=== PATIENT | female | born 1955 | race Caucasian/White ===

== ENCOUNTER 2017-06-02 11:36 | Day surgery (SDC) | payer OTHER ==
[~2017-06-02] VITALS: Ht 160 cm; Wt 62.0 kg
[2017-06-02 12:25] VITALS: BP 137/84; PULSE 103
[2017-06-02] MEDS ORDERED: LEXAPRO 10MG10 MG PO (12:31)
[2017-06-02] MEDS ORDERED: SINGULAIR 110 MG/TAB PO (12:32)
[2017-06-02] MEDS ORDERED: BREO IH (12:32)
[2017-06-02] MEDS ORDERED: BENEFIBER (12:32)
[2017-06-02] MEDS ORDERED: MULTI VITAMINS1 TAB PO (12:33)
[2017-06-02] MEDS ORDERED: NAC600 MG PO (12:40)
[2017-06-02] MEDS ORDERED: MIRALAX PA17 GM/Dose PO (12:40)
[2017-06-02] MEDS ORDERED: ZANTAC 150MG T150 MG PO (12:41)
[2017-06-02] MEDS ORDERED: SPIRIVA RE2.5 MCG/Ac IH (12:41)
[2017-06-02] MEDS ORDERED: ATARAX 25MG25 MG/TAB PO (12:42)
[2017-06-02] MEDS ORDERED: PRILOSEC 20MG20 MG PO (12:43)
[2017-06-02] MEDS ORDERED: LEVBID0.375 MG PO (12:43)
[2017-06-02 14:15] VITALS: BP 128/71; PULSE 88; TEMP 97.2
[2017-06-02 14:30] VITALS: BP 143/80; PULSE 80
[2017-06-02 14:45] VITALS: BP 146/91; PULSE 82
== END 2017-06-02 15:10 | disposition home or self-care (01) ==
LOC: SDCO 11:36
DX: K29.30 Chronic superficial gastritis without bleeding (principal); K22.2 Esophageal obstruction; K44.9 Diaphragmatic hernia without obstruction or gangrene; K21.9 Gastro-esophageal reflux disease without esophagitis; K58.2 Mixed irritable bowel syndrome; K59.09 Other constipation; J44.9 Chronic obstructive pulmonary disease, unspecified; Z87.891 Personal history of nicotine dependence
CPT/HCPCS: OP; C1769; J2704; J7120

== ENCOUNTER → 2017-07-21 | Outpatient (CLI) | payer OTHER ==
[~2017-07-21] MED LIST: ATARAX 25MG25 MG/TAB PO; BENEFIBER; BREO IH; LEVBID0.375 MG PO; LEXAPRO 10MG10 MG PO; MIRALAX PA17 GM/Dose PO; MULTI VITAMINS1 TAB PO; NAC600 MG PO; PRILOSEC 20MG20 MG PO; SINGULAIR 110 MG/TAB PO; SPIRIVA RE2.5 MCG/Ac IH; ZANTAC 150MG T150 MG PO
== END ==
LOC: COL.RAD 07-20 08:00
DX: K22.4 Dyskinesia of esophagus (principal)

== ENCOUNTER → 2017-07-23 | Outpatient (CLI) | payer OTHER | LOC: COL.RAD 07:44 | DX: R11.10 Vomiting, unspecified (principal) | CPT/HCPCS: A9541 ==

== ENCOUNTER 2017-08-24 10:31 | Day surgery (SDC) | payer OTHER ==
[~2017-08-24] VITALS: Ht 160 cm; Wt 57.7 kg
[2017-08-24] VITALS (13 sets, daily range): BP systolic 104–148; BP diastolic 44–109; PULSE 64–112; TEMP 97.6–98.2
[~2017-08-24 10:31] MED LIST changes: -BENEFIBER; +BENEFIBER PO
[2017-08-24] MEDS ORDERED: ZOFRAN ODT4 MG PO (11:39)
[2017-08-24] MEDS ORDERED: PULMICORT0.5 MG/2 M IH (11:41)
[2017-08-24] MEDS ORDERED: SPIRIVA RE2.5 MCG/Ac IH (21:05)
[2017-08-24] MEDS ORDERED: PROAIR HFA0.09 MG/AC IH (21:08)
[2017-08-25 01:35] VITALS: BP 124/69; PULSE 86; TEMP 98.5
[2017-08-25 05:41] VITALS: BP 139/74; PULSE 89; TEMP 98
[2017-08-25 10:22] VITALS: BP 122/74; PULSE 96; TEMP 98
== END 2017-08-25 16:30 | disposition home health service (06) ==
LOC: SDCO 10:31 → SURG 15:00 → SDCO 08-25 16:30
DX: K43.6 Other and unspecified ventral hernia with obstruction, without gangrene (principal); J44.9 Chronic obstructive pulmonary disease, unspecified; K21.9 Gastro-esophageal reflux disease without esophagitis; Z99.81 Dependence on supplemental oxygen; Z90.710 Acquired absence of both cervix and uterus; Z85.3 Personal history of malignant neoplasm of breast; Z87.891 Personal history of nicotine dependence; Z80.1 Family history of malignant neoplasm of trachea, bronchus and lung; Z82.3 Family history of stroke
CPT/HCPCS: OP; A9284; C1781; J0690; J1100; J1885; J2250; J2405; J2704; J3010; J7120

== ENCOUNTER 2019-01-12 17:25 | Inpatient (IN) | payer MEDICARE, OTHER ==
[~2019-01-12] VITALS: Ht 160 cm; Wt 49.1 kg
[~2019-01-12 17:25] MED LIST changes: +PROAIR HFA0.09 MG/AC IH; +PULMICORT0.5 MG/2 M IH; +ZOFRAN ODT4 MG PO
[2019-01-12 18:09] VITALS: BP 142/89; PULSE 122; TEMP 98.7
--- NOTE | 2019-01-12 18:20 | NUR ---
Patient arrived to room at 1745 via EMS. Is noted to be on 4L O2 via NC. Is dyspnic. Is on a heparin gtt. Spoke with pharmacy about conversion from [facility] to our pump. Was advised by pharmacist and CHANNELING MACHINE RUNNER to draw new lab. This was complete and reported to pharmacist which assited in adjusting the dose. Daughter is with patient at this time. She denies having any chest pain. Was notified that she received 1 ativan prior to leaving [place]. Personal items and call light is within reach.
[2019-01-12 19:57] VITALS: BP 127/77; PULSE 117; TEMP 100.1
[2019-01-12] MEDS ORDERED: B-121000 MCG PO (22:26)
[2019-01-12] MEDS ORDERED: DALIRESP500 MCG PO (22:29)
--- NOTE | 2019-01-12 22:50 | NUR ---
PT IN BED WITH HOB AT 60 DEGREE ANGLE. PT VERY SOB WITH ACTIVITY, ASSISTED TO BATHROOM AND BACK TO BED. PT WAS SOB AND 02 AT 88%, PT'S O2 DID COME UP WITHIN A COUPLE OF MINUTES. PT AWARE TO CALL FOR ASSISTANCE TO BATHROOM. DENIES PAIN OR DISCOMFORT AND NO NEEDS AT THIS TIME. CALL LIGHT WITHIN REACH.
--- NOTE | 2019-01-12 22:53 | NUR ---
RN IN ROOM ATTEMPTING TO START IV, PT APPEARS SOB. DIAPHARETIC, TACHYPNIC, SATS 89 ON 4 LPM NC DUONEB SVN GIVEN INSTEAD OF ALBUTEROL MDI PT APPEARS IMPROVED POST DUONEB TX. FOLLOWED BY BUDESONIDE SVN WILL CONTINUE TO MONITOR
[2019-01-12 23:53] VITALS: BP 131/72; PULSE 104; TEMP 99.7
[2019-01-13] VITALS (13 sets, daily range): BP systolic 101–144; BP diastolic 60–82; PULSE 86–132; TEMP 97.6–99.2
--- NOTE | 2019-01-13 01:14 | NUR ---
PT IN BED WITH HOB AT 90 DEGREE ANGLE AND BOTH EYES CLOSED. PT EASILY AWAKENS AND NO C/O PAIN OR DISCOMFORT AT THIS TIME. PT HAS NO NEEDS AT THIS TIME CALL LIGHT WITHIN REACH.
[2019-01-13 01:41] LABS: MAGNESIUM 1.7 mg/dL (1.6-2.3)
[2019-01-13 01:54] LABS: TROPONIN-I < 0.012 ng/mL (0.000-0.035)
--- NOTE | 2019-01-13 05:03 | NUR ---
PT SLEEPING/RESTING WITH NO S/S OF PAIN OR DISCOMFORT NOTED. HOB ELEVATED TO 30 DEGREE ANGLE AND PT'S RESP EVEN AND UNLABORED. CALL LIGHT WITHIN REACH.
--- NOTE | 2019-01-13 06:12 | NUR ---
UNEVENTFUL NIGHT FOR PT. PT SLEPT/RESTED FOR A FEW HOURS, WITH NO S/S OF PAIN OR DISCOMFORT NOTED. RESP EVEN AND UNLABORED. PT AWAKE AT THIS TIME A/O X4. CALL LIGHT WITHIN REACH.
[2019-01-13 07:35] LABS: HEMATOCRIT 50.6 % (37.0-47.0); HEMOGLOBIN 16.2 g/dl (12.5-16.0); MEAN CELL VOLUME 94 fl (80.0-100.0); MEAN CORPUSCULAR HEMOGLOBIN 30 pg (27.0-31.0); MEAN CORPUSCULAR HGB CONC 32 g/dl (33.0-37.0); MEAN PLATELET VOLUME 10.1 fl (7.4-10.4); PLATELET COUNT 204 K/mm3 (130-400); RED BLOOD COUNT 5.39 M/mm3 (4.10-5.30); REDCELL DISTRIBUTION WIDTH-CV 15.2 % (11.5-14.5)
[2019-01-13 07:50] LABS: ALBUMIN 3.8 gm/dL (3.5-5.0); BILIRUBIN,TOTAL 0.6 mg/dL (0.0-1.0); CALCIUM 9.6 mg/dL (8.4-10.2); CHOLESTEROL RISK RATIO 2.5; CREATININE, serum 0.4 (0.52-1.25); TOTAL PROTEIN 7.4 gm/dL (6.4-8.2)
--- NOTE | 2019-01-13 07:50 | NUR ---
Received report, patient is resting in bed with eyes closed. Respirations are even and non labored. Call light and personal items are within reach.
[2019-01-13 09:43] LABS: BAND 16 % (0-10); LYMPHOCYTE 19 % (20.0-51.0); NEUTROPHILS 65 % (42.0-75.2); PLATELET ESTIMATE NORMAL (NORMAL)
--- NOTE | 2019-01-13 11:04 | NUR ---
Initial visit; Patient thanked Supervisor Diagnostic for looking in on her and offering God's blessings. room service attendant let her know she would be offered Holy Communion since she is listed as Bahai.
--- NOTE | 2019-01-13 13:50 | NUR ---
SW attended clinical rounds to discuss discharge planning. Patient lives at home with her . Patient's PCP is Dr Walker at [facility] and patient obtains presciptions from [facility]. Patient uses home O2 but no other DME is reported. Patient does not use home health services. Patient reports she does have a DPOA. Patient was seen by PT and they report patient should not need any services when she is discharged. SW does not anticipate discharge needs.
--- NOTE | 2019-01-13 18:38 | NUR ---
Patient sitting up in bed, is at bedside. Denies pain. Call light and personal items are within reach.
--- NOTE | 2019-01-13 20:30 | NUR ---
Initial shift assessment done- denies pain, states SOB with any exertion-up to bathroom, purse lip breathing when back to bed--took a few minutes to resolve-- states does feel jittery tonight, understands resp treatments and steroids have that effect-- family in [place], visiting with patient- Tele on
[2019-01-14 03:46] VITALS: BP 117/61; PULSE 96; TEMP 98.6
--- NOTE | 2019-01-14 05:29 | NUR ---
Has been resting better after order for Melatonin during the night- remains very SOB with any exertion,o2 at 4L/nc
[2019-01-14 07:25] LABS: GRAN # 3.5 (1.4-6.5); HEMATOCRIT 41.8 % (37.0-47.0); LYMPH # 0.3 (1.2-3.4); LYMPH % 6.9 % (20.0-51.0); MEAN CELL VOLUME 93 fl (80.0-100.0); MEAN CORPUSCULAR HEMOGLOBIN 30 pg (27.0-31.0); MEAN CORPUSCULAR HGB CONC 32 g/dl (33.0-37.0); MEAN PLATELET VOLUME 9.7 fl (7.4-10.4); MONO # 0.3 (0.1-0.6); MONO % 6.4 % (1.7-9.3); PLATELET COUNT 182 K/mm3 (130-400); RED BLOOD COUNT 4.49 M/mm3 (4.10-5.30); REDCELL DISTRIBUTION WIDTH-CV 15.2 % (11.5-14.5)
[2019-01-14 07:38] LABS: CALCIUM 9.3 mg/dL (8.4-10.2); CREATININE, serum 0.39 (0.52-1.25); POTASSIUM 3.7 mmol/L (3.4-5.0)
[2019-01-14 07:49] LABS: HEMOGLOBIN 13.5 g/dl (12.5-16.0)
[2019-01-14 07:52] VITALS: BP 127/65; PULSE 78; TEMP 98.6
--- NOTE | 2019-01-14 08:38 | NUR ---
Pt assessment complete. Pt is laying in bed upon entry, she arouses to voice. Pt is oriented x3. Her breathing is currently even and unlabored on 4L O2 via NC, pt reports SOB on exertion. She has a dry non productive cough. Pt denies any pain. No N/V present, has not eaten yet this AM. No N/T. Tele reports frequent PVC's, pt denies any chest pain or palpitations. No needs at this time. Call light within reach.
[2019-01-14 11:47] VITALS: BP 126/63; PULSE 108; TEMP 98.5
[2019-01-14 16:33] VITALS: BP 118/66; PULSE 97; TEMP 98.2
--- NOTE | 2019-01-14 18:47 | NUR ---
Pt had uneventful day. Her breathing was unchanged on 4L O2 via NC. No pain reported. Pt laying in bed watching television, at bedside. Report given to JOVITA White. Call light within reach.
[2019-01-14 19:49] LABS: CALCIUM 9.5 mg/dL (8.4-10.2); CREATININE, serum 0.47 (0.52-1.25); MAGNESIUM 1.7 mg/dL (1.6-2.3); POTASSIUM 3.8 mmol/L (3.4-5.0)
[2019-01-14 20:00] VITALS: BP 130/63; PULSE 105; TEMP 99
--- NOTE | 2019-01-14 23:10 | NUR ---
Patient is alert and oriented, and able to make needs known. Peripheral IV to right forearm flushed. Site patent, and without redness, warmth, swelling, and pain. Patient complains of SOB and dyspnea with exertion. Respirations are labored with exertion, unlabored at rest. Respirations shallow when up moving around. LS CTA upper lobes, diminished lower lobes. Tachycardia. BSAx4. No edema.
--- NOTE | 2019-01-14 23:15 | NUR ---
At approximately 1920, this nurse got a phone call from testing tech reporting that patient was having multiple runs of PVCs, which was not happening on previous shift. This nurse assessed patient. Patient was sitting up in bed. Denied having SOB and chest pain. VS obtained: 99.0 105 18 130/63 93% on oxygen at 4 L/min via NC. Called and spoke with nurse practioner on duty at approximately 1925. Updated on patient. Order received for stat BMP and mag. Called lab and notified them. At approximately 1999, nurse practioner requested follow up BP and pulse. Obtained and called back to her: 122/62 110. Nurse practioner put in new orders. Called and notified 3rd floor charge of situation, as a cardizem bolus of 5 mg was ordered IV. During administration of medication, ACLS certified nurse administered medication, this nurse and charge nurse in room as well . 2015: BP 104/71 pulse 114. Patient was complaining that her heart was racing at this time, and was shaking. Patient laying in bed with HOB elevated during administration. Medication started to be given at 2016, finished at 2019. Afterwards, BP 127/63, pulse 110 (at 2020). Stated she no longer felt like her heart was racing. BP and pulse taken and patient checked on about every 5 minutes. Patient has denied having chest pain, palpitations, feelings of heart racing, etc. Given other medications as ordered: cardizem PO, IV magnesium, potassium PO. No furhter PVCs reported or noted. NS, with HR 90-110.
[2019-01-15] VITALS (9 sets, daily range): BP systolic 114–154; BP diastolic 58–71; PULSE 74–103; TEMP 97.9–98.8
--- NOTE | 2019-01-15 06:23 | NUR ---
Patient has not had any further complaints of chest pain or palpitations. Continues to wear oxygen at 4 L/min via NC. Continues to have SOB and dyspnea with exertion. Heart rate currently in the 70s. Voices no needs or concerns at this time. Resting in bed with eyes closed at this time. Call light is within reach.
--- NOTE | 2019-01-15 07:11 | NUR ---
Report given to day shift nurse.
[2019-01-15 07:39] LABS: CALCIUM 8.9 mg/dL (8.4-10.2); CREATININE, serum 0.37 (0.52-1.25); MAGNESIUM 2.1 mg/dL (1.6-2.3); POTASSIUM 4.6 mmol/L (3.4-5.0)
[2019-01-15 08:57] LABS: GRAN # 4.3 (1.4-6.5); GRAN % 85.6 % (42.2-75.2); HEMATOCRIT 41.5 % (37.0-47.0); HEMOGLOBIN 13.5 g/dl (12.5-16.0); LYMPH # 0.3 (1.2-3.4); LYMPH % 6.1 % (20.0-51.0); MEAN CELL VOLUME 92 fl (80.0-100.0); MEAN CORPUSCULAR HEMOGLOBIN 30 pg (27.0-31.0); MEAN CORPUSCULAR HGB CONC 33 g/dl (33.0-37.0); MEAN PLATELET VOLUME 10.3 fl (7.4-10.4); MONO # 0.4 (0.1-0.6); MONO % 7.9 % (1.7-9.3); PLATELET COUNT 154 K/mm3 (130-400); RED BLOOD COUNT 4.49 M/mm3 (4.10-5.30); REDCELL DISTRIBUTION WIDTH-CV 15.8 % (11.5-14.5)
--- NOTE | 2019-01-15 15:21 | NUR ---
Pt alert and oriented. Pt states she if feeling a little better but just worn out. Pt sleeping off and on but arouses easily. Pt remains on 4L oxygen via nasal cannula. Pt calls for assist to get up d/t low endurance and SOB with minimal exertion. Pt IV patent and no redness or infiltration noted. Pt has call light in reach.
--- NOTE | 2019-01-15 19:20 | NUR ---
Pt report given to Daniella HUSSEIN.
--- NOTE | 2019-01-15 20:40 | NUR ---
Patient report received from JOVITA Pollock at shift change. Upon assessment patient is sitting up in bed watching tv. Patient reports that she just received her breathing treatments which make her jittery. Requested PRN Ativan at this time. Patient denies pain or n/v. INT to right forearm. No other needs reported/observed.
--- NOTE | 2019-01-16 01:45 | NUR ---
IV started to Left Hand after Right FA IV was leaking. Discontinued Right FA IV at this time.
[2019-01-16 04:12] VITALS: BP 119/73; PULSE 75; TEMP 98
--- NOTE | 2019-01-16 05:42 | NUR ---
Patient report given to JOVITA Valdovinos. Patient is currently resting comfortably after being awake half the night. No needs reported at this time.
[2019-01-16 06:59] LABS: GRAN # 2.7 (1.4-6.5); GRAN % 70.5 % (42.2-75.2); HEMATOCRIT 39.5 % (37.0-47.0); HEMOGLOBIN 12.7 g/dl (12.5-16.0); LYMPH # 0.6 (1.2-3.4); LYMPH % 15.8 % (20.0-51.0); MEAN CELL VOLUME 94 fl (80.0-100.0); MEAN CORPUSCULAR HEMOGLOBIN 30 pg (27.0-31.0); MEAN CORPUSCULAR HGB CONC 32 g/dl (33.0-37.0); MEAN PLATELET VOLUME 10.1 fl (7.4-10.4); MONO # 0.5 (0.1-0.6); MONO % 13.2 % (1.7-9.3); PLATELET COUNT 177 K/mm3 (130-400); RED BLOOD COUNT 4.22 M/mm3 (4.10-5.30); REDCELL DISTRIBUTION WIDTH-CV 15.8 % (11.5-14.5)
[2019-01-16 07:13] LABS: CALCIUM 8.9 mg/dL (8.4-10.2); CREATININE, serum 0.44 (0.52-1.25); POTASSIUM 4.1 mmol/L (3.4-5.0)
[2019-01-16 08:48] VITALS: BP 127/67; PULSE 74; TEMP 98.6
[2019-01-16] MEDS ORDERED: TYLENOL 325MG325 MG PO (09:23)
[2019-01-16] MEDS ORDERED: MUCUS RELIEF400 M1 PO (09:23)
[2019-01-16] MEDS ORDERED: TESSALON P100 MG/CAP PO (09:27)
[2019-01-16] MEDS ORDERED: ATIVAN 0.50.5 MG/TAB PO (09:33)
[2019-01-16] MEDS ORDERED: LEXAPRO 10MG10 MG PO (09:33)
[2019-01-16] MEDS ORDERED: MILLIPRED DP5 MG PO (09:33)
--- NOTE | 2019-01-16 10:15 | NUR ---
Pt alert and oriented this am and denies pain. Pt SOB with minimal activity. Pt IV in left hand patent no redness or infiltration noted. Pt has orders to discharge home today. Pt has call light in reach and denies needs.
--- NOTE | 2019-01-16 10:55 | NUR ---
Pt given discharge instructions and hand written scripts for new medications. Meds reviewed with pt and pt denies questions and verbalizes understanding. Pt IV discontinued from left hand no bleeding and drsg applied. Pt's spouse at [employer] now and then will curing pickling packer pt to go home. Pt remains on 4L oxygen via nasal cannula. Pt telemetry taken off and ICU notified pt going home.
--- NOTE | 2019-01-16 11:42 | NUR ---
Patient is being DC, will need home health. TAD met with patient about home health and presented patient with medicare.gov referral sheet for home health in [place] area [id number]. [facility]. TAD sent referrals to both. NOthing further.
--- NOTE | 2019-01-16 11:45 | NUR ---
Pt escorted out to car via wheelchair without incident. Pt has all belongings.
== END 2019-01-16 10:30 | disposition home health service (06) | DRG 191 ==
LOC: MEDICAL 17:25
PROVIDERS: Nurse Practitioner; Nurse Practitioner Family; ADMIT Internal Medicine
DX: J44.1 Chronic obstructive pulmonary disease with (acute) exacerbation (principal); E44.0 Moderate protein-calorie malnutrition; Z68.1 Body mass index [BMI] 19.9 or less, adult; F32.9 Major depressive disorder, single episode, unspecified; R00.0 Tachycardia, unspecified; G47.00 Insomnia, unspecified; F41.9 Anxiety disorder, unspecified; R53.81 Other malaise; Z90.710 Acquired absence of both cervix and uterus; Z88.6 Allergy status to analgesic agent; Z88.0 Allergy status to penicillin
CPT/HCPCS: 99222; 99222-AI; 99232-AI; 99239; A9500; G0378; J1644; J1650; J2785; J2920; J2930; J3475; J7050; J7512

== ENCOUNTER → 2019-01-17 | Outpatient (CLI) | payer MEDICARE, OTHER ==
[~2019-01-17] MED LIST changes: +ATIVAN 0.50.5 MG/TAB PO; +B-121000 MCG PO; +DALIRESP500 MCG PO; +MILLIPRED DP5 MG PO; +MUCUS RELIEF400 M1 PO; +TESSALON P100 MG/CAP PO; +TYLENOL 325MG325 MG PO
== END ==
LOC: COL.RAD 07:33
DX: R63.4 Abnormal weight loss (principal)
CPT/HCPCS: A9541

== ENCOUNTER 2019-08-26 13:29 | Inpatient (IN) | payer MEDICARE, OTHER ==
[~2019-08-26] VITALS: Ht 160 cm; Wt 60.9 kg
[2019-10-04] VITALS (12 sets, daily range): BP systolic 101–143; BP diastolic 60–79; PULSE 73–81; TEMP 97–98.7
[2019-10-04] MEDS ORDERED: XOPENEX HF0.045 MG/A IH (14:24)
[2019-10-04] MEDS ORDERED: RT ADVAIR 528 DISKUS IH (14:24)
[2019-10-04] MEDS ORDERED: PRILOSEC 20MG20 MG PO (14:24)
[2019-10-04] MEDS ORDERED: ALLEGRA 180MG180 MG PO (14:25)
[2019-10-04] MEDS ORDERED: SINGULAIR 110 MG/TAB PO (14:26)
[2019-10-04] MEDS ORDERED: CARDIZEM CD 12120 MG PO (14:28)
[2019-10-04] MEDS ORDERED: COMBIRESP IH (14:51)
[2019-10-05] VITALS (10 sets, daily range): BP systolic 94–131; BP diastolic 41–70; PULSE 64–103; TEMP 97.7–99.2
[2019-10-05 07:39] LABS: HEMOGLOBIN 11.2 g/dl (12.5-16.0)
[2019-10-06 01:14] VITALS: BP 114/57; PULSE 90; TEMP 98.8
[2019-10-06 04:33] VITALS: BP 118/60; PULSE 78; TEMP 98.3
[2019-10-06 06:10] VITALS: BP 135/87; PULSE 72; TEMP 98
[2019-10-06] MEDS ORDERED: XARELTO10 MG PO (07:51)
[2019-10-06] MEDS ORDERED: CELEBREX 200MG200 MG PO (07:51)
[2019-10-06] MEDS ORDERED: ROXICODONE 55 MG/TAB PO (07:52)
[2019-10-06] MEDS ORDERED: ULTRAM 50MG TAB50 MG PO (07:52)
[2019-10-06] MEDS ORDERED: TYLENOL 500MG500 MG PO (07:53)
[2019-10-06] MEDS ORDERED: COLACE 100100 MG/CAP PO (07:54)
[2019-10-06 08:08] LABS: HEMOGLOBIN 10.6 g/dl (12.5-16.0)
[2019-10-06 08:13] LABS: HEMATOCRIT 32.8 % (37.0-47.0)
[2019-10-06 08:40] VITALS: BP 120/61; PULSE 87; TEMP 98.2
[2019-10-06 10:11] VITALS: BP 110/61; PULSE 90; TEMP 98
[2019-10-06 12:35] VITALS: BP 101/57; PULSE 88; TEMP 97.6
== END 2019-10-06 14:00 | disposition home or self-care (01) | DRG 470 ==
LOC: JCC 10-04 07:30
PROVIDERS: ADMIT Orthopaedic Surgery
PROC: 0SR903A Replacement of Right Hip Joint with Ceramic Synthetic Substitute, Uncemented, Open Approach (ICD-10-PCS; principal; 2019-10-04 09:30)
DX: M87.851 Other osteonecrosis, right femur (principal); M16.11 Unilateral primary osteoarthritis, right hip; J44.9 Chronic obstructive pulmonary disease, unspecified; J30.2 Other seasonal allergic rhinitis; F32.9 Major depressive disorder, single episode, unspecified; F41.9 Anxiety disorder, unspecified; I10 Essential (primary) hypertension; K59.00 Constipation, unspecified; R33.9 Retention of urine, unspecified; L50.9 Urticaria, unspecified; Z72.89 Other problems related to lifestyle; Z85.3 Personal history of malignant neoplasm of breast; Z92.21 Personal history of antineoplastic chemotherapy; Z90.710 Acquired absence of both cervix and uterus; Z87.891 Personal history of nicotine dependence
CPT/HCPCS: 99222; 99231-AI; A4216; A4314; A9284; C1713; C1776; J0690; J2250; J2370; J2704; J3010; J7030; J7120

== ENCOUNTER → 2019-09-26 | Outpatient (CLI) | payer MEDICARE, OTHER | LOC: COL.LAB 09:35 | DX: M16.11 Unilateral primary osteoarthritis, right hip (principal) ==

== ENCOUNTER 2022-07-31 14:15 | Inpatient (IN) | payer MEDICARE, OTHER ==
[~2022-07-31] VITALS: Ht 160 cm; Wt 60.4 kg
[~2022-07-31 14:15] MED LIST changes: +ALLEGRA 180MG180 MG PO; +CARDIZEM CD 12120 MG PO; +CELEBREX 200MG200 MG PO; +COLACE 100100 MG/CAP PO; +COMBIRESP IH; +ROXICODONE 55 MG/TAB PO; +RT ADVAIR 528 DISKUS IH; +TYLENOL 500MG500 MG PO; +ULTRAM 50MG TAB50 MG PO; +XARELTO10 MG PO; +XOPENEX HF0.045 MG/A IH
[2022-09-08] VITALS (11 sets, daily range): BP systolic 100–134; BP diastolic 46–82; PULSE 71–107; TEMP 97.6–98.3
[2022-09-08 09:11] LABS: COLLECTION METHOD CLEAN CATCH
[2022-09-08 09:56] LABS: MUCOUS Present (NOT PRESENT); SQUAMOUS EPITHELIAL 0-2 /hpf (0-10); URINE BACTERIA None Seen /hpf (NONE SEEN); URINE RBC 0-2 /hpf (0-2); URINE WBC 0-2 /hpf (0-2)
[2022-09-08] MEDS ORDERED: ZYRTEC 10MG10 MG PO (10:02)
[2022-09-08 10:07] LABS: URINE APPEARANCE Clear (CLEAR/HAZY); URINE BLOOD Negative (NEGATIVE); URINE COLOR Yellow (YELLOW); URINE GLUCOSE Negative (NEGATIVE); URINE KETONE 1+ (NEGATIVE); URINE NITRATE Negative (NEGATIVE); URINE PROTEIN(semi-quant) Negative (NEGATIVE); URINE UROBILINOGEN 0.2 E.U/dL (0.2-1.0)
[2022-09-08] MEDS ORDERED: MYLICON 8080 MG/TAB. PO (10:09)
[2022-09-08] MEDS ORDERED: ZITHROMAX 250M250 MG PO (10:12)
[2022-09-08] MEDS ORDERED: LEVBID0.375 MG PO (10:18)
--- NOTE | 2022-09-08 14:40 | NUR ---
Patient admitted to the unit from PACU at 1400. Patient alert and oriented. O2 4L/NC in use. Dressing on the left hip dry and intact. Pulses present. Patient has shikha stockings on and SCD applied to the bilateral lower extremities. Patient oriented to room , the use of call [place] . Patient has no sensation at left lower extremity at this time. Family members at the bedside. ICE water offered to patient. Will continue to monitor patient.
--- NOTE | 2022-09-08 19:21 | NUR ---
Patient c/o of pain at left hip and rated pain level 8/10. Ultram administered and ice pack applied to the affected area.
--- NOTE | 2022-09-08 20:29 | NUR ---
PT IN BED, REPORTS SIGNIFICANT PAIN TO LT HIP. MEDICATED WITH OXYCODONE 5MG PO AND DILAUDID 0.25MG IVP AT THIS TIME. HS MEDS GIVEN. TAKING PO FLUIDS WELL, INT TO RFA AT THIS TIME. HAS BULKY DRSG TO LEFT HIP. CHRONIC OXYGEN WEARER AT 4L/NC. ICE PACK IN PLACE. IS ALERT AND ORIENTED X4. HAS BEEN UP TO BATHROOM WITH WALKER AND ONE ASSIST TO VOID. WILL MONITOR FOR CHANGES.
[2022-09-09] VITALS (7 sets, daily range): BP systolic 100–127; BP diastolic 52–74; PULSE 90–105; TEMP 98–99.7
--- NOTE | 2022-09-09 00:20 | NUR ---
PT REPORTS PAIN 8/10 TO RT HIP. MEDICATED WITH OXYCODONE 5MG PO NOW.
--- NOTE | 2022-09-09 02:15 | NUR ---
PT ASKING FOR PAIN MEDS, DID NOT WANT THE TRAMADOL. DILAUDID 0.25MG IVP NOW. ASSISTED TO BATHROOM, GAIT SLOW AND STEADY WITH WALKER AND ONE ASSIST. VOIDS AND BACK TO BED.
--- NOTE | 2022-09-09 04:46 | NUR ---
MEDICATED WITH OXYCODONE 5MG PO FOR LT HIP PAIN.
--- NOTE | 2022-09-09 05:58 | NUR ---
REPEATED OXYCODONE 5MG PO FOR LT HIP PAIN, SCHEDULED AM MED GIVEN WELL.
[2022-09-09 06:51] LABS: HEMOGLOBIN 11.6 g/dl (12.5-16.0)
[2022-09-09 06:54] LABS: HEMATOCRIT 35.9 % (37.0-47.0)
--- NOTE | 2022-09-09 07:21 | NUR ---
Report received from the night nurseMarychuy RN
--- NOTE | 2022-09-09 07:49 | NUR ---
Patient sitting up in a chair next to bed. Patient alert and oriented. Patient states she had sleepless night due to pain at left hip. Patient took some pain meds at night and states pain is a little bit better this am. Pulses present. 02 4L/NC in use and patient denies shortness of breath. Will continue to assess pain level throughout the shift.
--- NOTE | 2022-09-09 10:38 | NUR ---
TAD met with the patient to discuss discharge plan. The patient lives in [place] with her , Leonid (ph#[phone]). She reports independence with ADLs and has a walker, wheelchair, and home oxygen from [facility]. The patient's PCP is Dr. Jeffers at [facility] and she receives her medications from [facility] in . The patient's DPAO-HC is in EMR and it designates her . The patient plans to return home with her and receive outpatient PT at a clinic in [place]. No additional needs at this time. *Discharge plan: home with and outpatient PT*
--- NOTE | 2022-09-09 11:08 | NUR ---
Dressing changed at the left hip and applied aquacell dressing at site. Patient tolerated it wel. Roxicodone administered for pain level of 6/10.
--- NOTE | 2022-09-09 15:20 | NUR ---
Patient reports of severe pain at left thigh and rated pain level 9/10. Roxicodone administered and x-ray notified to have films taken at left hip per doctor's orders .
--- NOTE | 2022-09-09 20:47 | NUR ---
PT IN BED. IS ALERT AND ORIENTED X4. REPORTS SIGNIFICANT PAIN TO LT THIGH ABOVE KNEE. LT HIP AQUACEL DRSG D/I. PLACED ICE PACK TO THIGH. MEDICATED WITH HS MEDS INCLUDING OXYCODONE 10MG PO. INT TO RFA. CHRONIC OXYGEN DEPENDENT AT 4L/NC.
[2022-09-10] VITALS (7 sets, daily range): BP systolic 103–120; BP diastolic 52–62; PULSE 86–107; TEMP 97.8–99
--- NOTE | 2022-09-10 00:30 | NUR ---
PT SET OFF BED ALARM. WAS SITTING AT EDGE OF BED, STATED " I WAS GOING TO CALL YOU". HAD REMOVED SCDS. ASSISTED TO BATHROOM WITH WALKER AND GAIT BELT. PT STATED SHE WOKE UP AND WASN'T SURE WHERE SHE WAS. IS NOW ORIENTED.
--- NOTE | 2022-09-10 00:38 | NUR ---
PT MEDICATED WITH OXYCODONE 10MG PO FOR LT HIP PAIN NOW THAT SHE IS IN BED. WAS DIFFICULT TO DIRECT FROM BATHROOM TO BED. BED ALARM ON FOR SAFETY. ICE PACK REPLACED.
[2022-09-10 07:22] LABS: HEMOGLOBIN 11.4 g/dl (12.5-16.0)
[2022-09-10 07:26] LABS: HEMATOCRIT 33.7 % (37.0-47.0)
--- NOTE | 2022-09-10 09:06 | NUR ---
The patient's weight bearing status was changed to partial weight bearing. PT is recommending that the patient may need post-acute rehab. SW met with the patient to discuss their recommendation. The patient is interested [facility]. SW consulted [facility] DirectorRiddhi. Awaiting screen.
--- NOTE | 2022-09-10 09:27 | NUR ---
PATIENT ALERT BUT CONFUSED THIS MORNING. PATIENT ATTEMPTED TO EXIT BED MULTIPLE TIMES WITHOUT UTILIZING CALL LIGHT. PATIENT C/O PAIN 6.5/10, REQUESTS PAIN MEDICATION. SPOKE WITH CHASE ABOUT CHANGING MEDS FROM OXY 10, PATIENT APPEARS TO BE DISPLAYING INCREASED CONFUSION ASSOCIATED WITH PAIN MEDICATION. CHANGED TO NORCO 7.5MG. ASSESSMENT PERFORMED. AM MEDS ADMINISTERED. PATIENT RESTING IN CHAIR WITH CALL LIGHT NEAR.
--- NOTE | 2022-09-10 17:32 | NUR ---
PATIENT CONTINUES TO DISPLAY INTERMITTENT CONFUSION. PATIENT REPORTS PAIN, REQUESTS PAIN MEDICATION. IV INFILTRATED. IV REMOVED. PATIENT IN CHAIR, CALL ALARM NEAR.
--- NOTE | 2022-09-10 18:07 | NUR ---
PATIENT'S DAUGHTER REPORTS THAT SHE FEELS HER MOTHER IS DISPLAYING CONFUSION AND THIS IS NOT BASELINE FOR HER. PATIENT'S DAUGHTER EXPLAINS THAT SHE HAS INTERMITTENT CONFUSION BUT THIS IS NEW FOR HER.
--- NOTE | 2022-09-10 21:00 | NUR ---
PT RESTING IN BED. A&O AT THIS TIME. HAVING TREMORS. ANSWERS QUESTIOS APPROPRIATELY. SEE SHIFT ASSESS MENT COMPLETED. CALL LIGHT IN REACH. BED ALARM SET.
--- NOTE | 2022-09-11 | NUR ---
PT AWAKE. READING. DENIES NEEDS. PAIN MED HELPED. ORIENTED. CALL LIGHT IN REACH. BED ALARM SET.
[2022-09-11 02:46] VITALS: BP 117/59; PULSE 91; TEMP 97.8
--- NOTE | 2022-09-11 05:25 | NUR ---
FOUND PT GETTING OUT OG BED. CONFUSED BUT NEEDED TOILET. 2:1 ASSIST TO BSC. HAD LG LOOSE GREEN STOOL. ASSISTED BACJ TO BED. SEE MAR FOR PAIN MED GIVEN.
[2022-09-11 07:51] VITALS: BP 132/64; PULSE 95; TEMP 98.2
[2022-09-11 11:33] VITALS: BP 123/57; PULSE 114; TEMP 98.4
--- NOTE | 2022-09-11 13:26 | NUR ---
PATIENT ALERT TO SELF. PATIENT REPORTS MILD PAIN ON LEFT HIP. ATTEMPTED TO RE-ORIENT PATIENT. PATIENT CONTINUES TO BE CONFUSED REGARDING PLACE AND TIME. DRESSING TO LEFT HIP, CDI. YEN HOSE ON. PILLOWS PLACED UNDER LLE AND ICE PACK APPLIED. ASSESSMENT PERFORMED, AM MEDS ADMINISTERED. PATIENT RESTING IN BED WITH CALL LIGHT NEAR.
--- NOTE | 2022-09-11 13:39 | NUR ---
Riddhi and Vivian, with [facility], report that the patient has started to have some confusion. They plan to monitor the patient and they may not have a bed available. SW contacted the patient's , Leonid, to update and review discharge plan. He is interested in rehab for his and states that he would prefer [facility]. He is open to sending referrals to [facility], [facility], and [facility]. SW faxed referrals to those facilities. Awaiting screens.
--- NOTE | 2022-09-11 16:10 | NUR ---
Sonia, at [facility], states that they have had the patient's in the past and would be able to accept the patient for a skilled stay.
[2022-09-11 16:21] VITALS: BP 122/60; PULSE 87; TEMP 98
--- NOTE | 2022-09-11 19:26 | NUR ---
RECEIVED CHANGE OF SHIFT REPORT FROM DAY SHIFT RN.
[2022-09-11 19:52] VITALS: BP 129/58; PULSE 110; TEMP 99.4
[2022-09-11 23:48] VITALS: BP 117/45; PULSE 110; TEMP 98.4
[2022-09-12 03:50] VITALS: BP 140/71; PULSE 116; TEMP 98
--- NOTE | 2022-09-12 07:14 | NUR ---
Shift report received from the night nurseKaycee RN.
--- NOTE | 2022-09-12 07:24 | NUR ---
CHANGE OF SHIFT REPORT GIVEN TO DAY SHIFT RNNICOLA. PATIENT HAS BEEN CONFUSED AND IS UNABLE TO BE REORIENTED TO PLACE/TIME/EVENT. SPEECH CLEAR, STRENGTH TO EXTREMITIES ARE EQUAL, NO FACIAL DROOPING OBSERVED. CONTINUES TO OBVIOUS TREMORING TO BUE AND OBSERVED OUT OF BED TRANSFERS UNSTEADY AND PATIENT REQUIRING FREQUENT CUES WITH GAIT AND USE OF WALKER.
[2022-09-12 07:45] VITALS: BP 127/86; PULSE 98; TEMP 98.7
[2022-09-12 08:17] LABS: BASO % 0.3 % (0.0-2.0); EOS # 0.1 K/mm3 (0.0-0.7); GRAN # 4.5 K/mm3 (1.4-6.5); GRAN % 75.3 % (42.2-75.2); HEMOGLOBIN 11.1 g/dl (12.5-16.0); LYMPH # 0.6 K/mm3 (1.2-3.4); LYMPH % 10.3 % (20.0-51.0); MEAN CELL VOLUME 98 fl (80.0-100.0); MEAN CORPUSCULAR HEMOGLOBIN 32 pg (27-31); MEAN CORPUSCULAR HGB CONC 33 g/dl (33.0-37.0); MEAN PLATELET VOLUME 9.4 fl (7.4-10.4); MONO # 0.8 K/mm3 (0.1-0.6); MONO % 12.8 % (1.7-9.3); PLATELET COUNT 192 K/mm3 (130-400); RED BLOOD COUNT 3.45 M/mm3 (4.10-5.30); REDCELL DISTRIBUTION WIDTH-CV 12.9 % (11.5-14.5)
[2022-09-12 08:18] LABS: HEMATOCRIT 33.8 % (37.0-47.0)
[2022-09-12 08:36] LABS: ALBUMIN 2.5 gm/dL (3.4-4.8); BILIRUBIN,TOTAL 0.9 mg/dL (0.2-1.2); CALCIUM 9.2 mg/dL (8.4-10.2); CREATININE, serum 0.53 mg/dL (0.57-1.11); MAGNESIUM 1.8 mg/dL (1.6-2.6); POTASSIUM 3.6 mmol/L (3.5-4.5); TOTAL PROTEIN 6.2 gm/dL (6.2-8.1)
--- NOTE | 2022-09-12 09:15 | NUR ---
Patient sitting up in the recliner by the bedside . Patient has some confusion, has 02 3L/NC in use. Patient was out breath after walking to the bathroom . Noted some tremors. Patient reports of discomfort at left hip. Aquacell cell dressing partially off and will apply new dressing. on. See process intervention for notes.
--- NOTE | 2022-09-12 11:21 | NUR ---
Hero, from [facility], arrived to the hospital to screen the patient. After meeting with the patient, they informed SW that they would be able to accept her. They would not be able to take until Thursday though. SW to fax updates to the facilities.
[2022-09-12 11:44] VITALS: BP 96/67; PULSE 96; TEMP 98.9
--- NOTE | 2022-09-12 13:18 | NUR ---
Fausto, at [facility], contacted SW. She states that she has already been in contact with the patient's , Leonid, and he is on his way in to complete admission paperwork. Fausto states that she is also working on getting Dr. Sundeep Russell to follow the patient while here. Fausto plans to get in touch with TAD on Thursday.
--- NOTE | 2022-09-12 14:45 | NUR ---
Dressing changed at left hip and applied aquacell dressing. Noted large size of reddness around the aquacell dressing area. No drainage noted at the incision area. Left hip area feels warm to touch and Mitch White notified and ordered to remove aquacell dressing and apply telfa and tergadem dressing to the incision area. Temp taken with a reading of 98.6. Will continue to monitor the affected area.
[2022-09-12 17:17] VITALS: BP 130/61; PULSE 84; TEMP 98
--- NOTE | 2022-09-12 18:18 | NUR ---
Dressing changed at Left hip, applied telfa and tergaderm dressing on. Affected area look red and warm to touch. Patient denies needs at this time. Family at the bedside.
--- NOTE | 2022-09-12 20:00 | NUR ---
Shift assessment done caleb 2014. A&Ox4 during pt's assessment. Pt has visible tremors. Assisted to the bathroom. Redness noticed on Left Hip. Dressing in place is CDI. Briefs taken off to promote circulation due to thightness on BLE. No IV site. O2 at 2L per NC. All medications given per emar. No other needs or concerns at this time. Belongings and call light within reach.
[2022-09-12 20:40] VITALS: BP 137/69; PULSE 93; TEMP 98.1
--- NOTE | 2022-09-12 21:08 | NUR ---
PT RESTING COMFORTABLY IN BED. NO DISTRESS NOTED. NO COMPLICATIONS WITH TX. TOLERATING WELL. RAILS UP X3. CALL LIGHT/REMOTE WITHIN REACH. NO VOICED COMPLAINTS AT THIS TIME.
[2022-09-12 23:28] VITALS: BP 126/71; PULSE 90; TEMP 98.2
[2022-09-13 03:38] VITALS: BP 135/73; PULSE 82; TEMP 98.2
[2022-09-13 06:38] LABS: BASO % 0.7 % (0.0-2.0); EOS # 0.2 K/mm3 (0.0-0.7); GRAN # 2.8 K/mm3 (1.4-6.5); GRAN % 63.1 % (42.2-75.2); HEMOGLOBIN 11.2 g/dl (12.5-16.0); LYMPH # 0.6 K/mm3 (1.2-3.4); LYMPH % 14.1 % (20.0-51.0); MEAN CELL VOLUME 94 fl (80.0-100.0); MEAN CORPUSCULAR HEMOGLOBIN 32 pg (27-31); MEAN CORPUSCULAR HGB CONC 34 g/dl (33.0-37.0); MEAN PLATELET VOLUME 9.8 fl (7.4-10.4); MONO # 0.7 K/mm3 (0.1-0.6); MONO % 16.6 % (1.7-9.3); PLATELET COUNT 190 K/mm3 (130-400); RED BLOOD COUNT 3.48 M/mm3 (4.10-5.30)
[2022-09-13 06:54] LABS: CALCIUM 8.8 mg/dL (8.4-10.2); CREATININE, serum 0.51 mg/dL (0.57-1.11); POTASSIUM 3.1 mmol/L (3.5-4.5)
[2022-09-13 06:56] LABS: HEMATOCRIT 32.7 % (37.0-47.0)
[2022-09-13 08:00] VITALS: BP 125/55; PULSE 80; TEMP 98.2
--- NOTE | 2022-09-13 09:55 | NUR ---
PT RESTING IN BED BREAKFAST ORDERED. PO PAIN MEDS GIVEN ORDERED. DRESSING TO LEFT HIP CDI. PT IS A/O X4. EATING AND DRINKING NO N/V.
[2022-09-13 12:00] VITALS: BP 120/64; PULSE 82; TEMP 98.2
[2022-09-13 16:00] VITALS: BP 120/53; PULSE 91; TEMP 98.8
[2022-09-13 19:50] VITALS: BP 116/68; PULSE 82; TEMP 98.7
[2022-09-13 23:43] VITALS: BP 111/59; PULSE 97; TEMP 98.3
[2022-09-14 03:50] VITALS: BP 126/60; PULSE 76; TEMP 98.5
[2022-09-14 06:40] LABS: CALCIUM 9.1 mg/dL (8.4-10.2); CREATININE, serum 0.51 mg/dL (0.57-1.11); MAGNESIUM 1.7 mg/dL (1.6-2.6); POTASSIUM 3.4 mmol/L (3.5-4.5)
[2022-09-14 07:59] VITALS: BP 125/74; PULSE 67; TEMP 98
[2022-09-14 11:57] VITALS: BP 109/52; PULSE 89; TEMP 98
[2022-09-14 16:12] VITALS: BP 126/58; PULSE 89; TEMP 97.9
[2022-09-14 19:42] VITALS: BP 146/74; PULSE 101; TEMP 99.2
[2022-09-15 00:05] VITALS: BP 118/68; PULSE 85; TEMP 98.8
[2022-09-15 03:20] VITALS: BP 120/66; PULSE 75; TEMP 98.7
[2022-09-15 07:03] LABS: BASO % 0.8 % (0.0-2.0); EOS # 0.3 K/mm3 (0.0-0.7); EOS % 7.2 % (0.0-4.0); GRAN # 2.2 K/mm3 (1.4-6.5); GRAN % 55.5 % (42.2-75.2); HEMOGLOBIN 11.7 g/dl (12.5-16.0); LYMPH # 0.9 K/mm3 (1.2-3.4); MEAN CELL VOLUME 96 fl (80.0-100.0); MEAN CORPUSCULAR HEMOGLOBIN 32 pg (27-31); MEAN CORPUSCULAR HGB CONC 34 g/dl (33.0-37.0); MEAN PLATELET VOLUME 9.6 fl (7.4-10.4); MONO # 0.5 K/mm3 (0.1-0.6); RED BLOOD COUNT 3.63 M/mm3 (4.10-5.30); REDCELL DISTRIBUTION WIDTH-CV 12.9 % (11.5-14.5)
[2022-09-15 07:04] LABS: HEMATOCRIT 34.9 % (37.0-47.0); PLATELET COUNT 298 K/mm3 (130-400)
[2022-09-15 07:17] LABS: CALCIUM 9.5 mg/dL (8.4-10.2); CREATININE, serum 0.51 mg/dL (0.57-1.11)
[2022-09-15 07:54] VITALS: BP 124/60; PULSE 77; TEMP 98.5
--- NOTE | 2022-09-15 08:56 | NUR ---
Patient presented with the Medicare.IM form. Education provided and patient verbalizes her understanding and agreement with todays discharge plan. Signed original placed in the patients chart and copy provided back to the patient.
--- NOTE | 2022-09-15 08:58 | NUR ---
Pt doing well this morning. She is aware that she will be going to [facility] today. Shelby with social work unsure of time at this time. Informed pt she would be notified once we know. Pt currently sitting up in the chair. Pain complaints 6/10, but states it is not too bad that normally it is a 7. Pt aware that she can have more pain medication closer to 10. No needs, awaiting breakfast at this time
--- NOTE | 2022-09-15 09:29 | NUR ---
Initial visit; Patient thanked Parasitologist for looking in on her and offering God's blessings and was pleased that Parasitologist would keep her in her prayers.
[2022-09-15] MEDS ORDERED: ELIQUIS 2.5 PO (10:42)
[2022-09-15] MEDS ORDERED: TYLENOL 500MG500 MG PO (10:43)
[2022-09-15] MEDS ORDERED: ROXICODONE 55 MG/TAB PO ×2 (10:44→14:08)
[2022-09-15] MEDS ORDERED: SENEXON-S 50-81 EACH PO (10:45)
[2022-09-15 11:05] VITALS: BP 108/75; PULSE 97; TEMP 98.7
--- NOTE | 2022-09-15 13:57 | NUR ---
Transportation arranged for [facility] jesus to pick the patient up at 1700. Patient and patients RN notified. Updates and discharge orders faxed to facility. Discharge plan: [facility].
[2022-09-15 15:07] VITALS: BP 108/75; PULSE 97; TEMP 98.7
--- NOTE | 2022-09-15 15:30 | NUR ---
Pt escorted out via [facility] staff. Report called
== END 2022-09-15 15:30 | DRG 470 ==
LOC: SURG 09-08 08:26 → MEDICAL 09-08 08:26 → INPTSU 09-08 08:47 → SURG 09-08 08:47
PROVIDERS: Internal Medicine; Physician Assistant; Student in an Organized Health Care Education/Training Program; ADMIT Orthopaedic Surgery
PROC: 0SRB04A Replacement of Left Hip Joint with Ceramic on Polyethylene Synthetic Substitute, Uncemented, Open Approach (ICD-10-PCS; principal; 2022-09-08 11:45)
DX: M16.12 Unilateral primary osteoarthritis, left hip (principal); J96.11 Chronic respiratory failure with hypoxia; J44.9 Chronic obstructive pulmonary disease, unspecified; I10 Essential (primary) hypertension; R00.0 Tachycardia, unspecified; R58 Hemorrhage, not elsewhere classified; R41.0 Disorientation, unspecified; E83.52 Hypercalcemia; K21.9 Gastro-esophageal reflux disease without esophagitis; F41.9 Anxiety disorder, unspecified; G25.0 Essential tremor; F10.90 Alcohol use, unspecified, uncomplicated; Z20.822 Contact with and (suspected) exposure to COVID-19; Z79.891 Long term (current) use of opiate analgesic; Z88.2 Allergy status to sulfonamides; Z88.0 Allergy status to penicillin; Z88.5 Allergy status to narcotic agent
CPT/HCPCS: OP; A4314; A9284; C1713; C1776; J0690; J1170; J2250; J2704; J7030; J7120

== ENCOUNTER 2023-04-26 22:47 | Inpatient (IN) | payer MEDICARE, OTHER ==
[~2023-04-26] VITALS: Ht 160 cm; Wt 60.0 kg
[~2023-04-26 22:47] MED LIST changes: +ELIQUIS 2.5 PO; +MYLICON 8080 MG/TAB. PO; +SENEXON-S 50-81 EACH PO; +ZITHROMAX 250M250 MG PO; +ZYRTEC 10MG10 MG PO
[2023-04-26 23:14] LABS: BASO # 0.1 K/mm3 (0.0-0.2); BASO % 0.9 % (0.0-2.0); EOS # 0.5 K/mm3 (0.0-0.7); EOS % 8.4 % (0.0-4.0); GRAN # 3.4 K/mm3 (1.4-6.5); GRAN % 62.2 % (42.2-75.2); HEMATOCRIT 44.8 % (37.0-47.0); LYMPH # 0.9 K/mm3 (1.2-3.4); LYMPH % 16.8 % (20.0-51.0); MEAN CELL VOLUME 95 fl (80.0-100.0); MEAN CORPUSCULAR HEMOGLOBIN 32 pg (27-31); MEAN CORPUSCULAR HGB CONC 34 g/dl (33.0-37.0); MEAN PLATELET VOLUME 9.5 fl (7.4-10.4); MONO # 0.6 K/mm3 (0.1-0.6); MONO % 11.3 % (1.7-9.3); PLATELET COUNT 156 K/mm3 (130-400); RED BLOOD COUNT 4.72 M/mm3 (4.10-5.30); REDCELL DISTRIBUTION WIDTH-CV 13.1 % (11.5-14.5)
[2023-04-26 23:22] LABS: COLLECTION METHOD CLEAN CATCH
[2023-04-26 23:30] LABS: SQUAMOUS EPITHELIAL 0-2 /hpf (0-10); URINE BACTERIA None Seen /hpf (NONE SEEN); URINE RBC 0-2 /hpf (0-2)
[2023-04-26 23:32] LABS: ALANINE AMINOTRANSFERASE 34 U/L (0-55); ALBUMIN 3.4 gm/dL (3.4-4.8); ALKALINE PHOSPHATASE 122 U/L (40-150); ANION GAP 13 mmol/L (7-16); AST,SGOT 44 U/L (5-34); BILIRUBIN,TOTAL 0.3 mg/dL (0.2-1.2); BLOOD UREA NITROGEN 5 mg/dL (10-20); CALCIUM 9.8 mg/dL (8.4-10.2); CARBON DIOXIDE 27 mmol/L (23-31); CHLORIDE 98 mmol/L (98-107); CREATININE, serum 0.56 mg/dL (0.57-1.11); GLUCOSE 100 mg/dL (70-99); POTASSIUM 4.3 mmol/L (3.5-4.5); SODIUM 138 mmol/L (136-145); TOTAL PROTEIN 7.1 gm/dL (6.2-8.1)
[2023-04-26 23:41] LABS: PH 5.5 (5.0-8.5); URINE APPEARANCE Clear (CLEAR/HAZY); URINE BLOOD Negative (NEGATIVE); URINE COLOR Yellow (YELLOW); URINE GLUCOSE Negative (NEGATIVE); URINE KETONE Negative (NEGATIVE); URINE NITRATE Negative (NEGATIVE); URINE PROTEIN(semi-quant) Negative (NEGATIVE); URINE UROBILINOGEN 0.2 E.U/dL (0.2-1.0)
[2023-04-26 23:47] LABS: TROPONIN-I < 0.010 ng/mL (0.00-0.033)
[2023-04-26 23:48] LABS: ARTERIAL BLD GAS O2 SATURATION 96.7 % (92-100); ARTERIAL BLD GAS TCO2 CT 25.7; ARTERIAL BLOOD GAS BASE EXCESS -0.4 (-2-2); ARTERIAL BLOOD GAS HCO3 24.4 meq/L (22-26); ARTERIAL BLOOD GAS PCO2 40.9 mmHg (35-45); ARTERIAL BLOOD GAS PO2 91.4 mmHg (80-100); ARTERIAL BLOOD GAS pH 7.39 (7.35-7.45)
[2023-04-27] VITALS (9 sets, daily range): BP systolic 127–164; BP diastolic 52–93; PULSE 98–117; TEMP 98.1–99.3
[2023-04-27] MEDS ORDERED: VITAMIN B11000 MCG/M IM (01:35)
[2023-04-27] MEDS ORDERED: SINGULAIR 110 MG/TAB PO (01:39)
[2023-04-27] MEDS ORDERED: CARDIZEM CD 12120 MG PO (01:41)
[2023-04-27] MEDS ORDERED: PRILOTC PO (01:42)
[2023-04-27] MEDS ORDERED: OMNICEF 300MG300 MG PO (02:35)
[2023-04-27] MEDS ORDERED: COMBIRESP IH (02:59)
[2023-04-27] MEDS ORDERED: FLONASE NASAL S16 GM NS (03:00)
[2023-04-27] MEDS ORDERED: PROAIR HFA0.09 MG/AC IH (03:00)
[2023-04-27] MEDS ORDERED: XOPENEX 1.1.25 MG/3 IH ×2 (03:01→08:37)
[2023-04-27] MEDS ORDERED: CRESTOR40 MG PO (03:01)
[2023-04-27] MEDS ORDERED: PRILOSEC10 MG PO (03:05)
[2023-04-27] MEDS ORDERED: TAZTIA120 PO (03:06)
[2023-04-27] MEDS ORDERED: FOSAMAX 70MG TA70 MG PO (03:06)
[2023-04-27] MEDS ORDERED: WIXELA 500-501 EACH IH (03:07)
[2023-04-27] MEDS ORDERED: DALIRESP500 MCG PO (03:07)
[2023-04-27] MEDS ORDERED: ZOFRAN 4MG T4 MG/TAB PO (03:07)
[2023-04-27] MEDS ORDERED: B-121000 MCG PO (03:10)
[2023-04-27] MEDS ORDERED: ERGOCALCIFER50000 IU PO ×2 (03:10→10:13)
[2023-04-27] MEDS ORDERED: LEXAPRO 10MG10 MG PO (03:11)
--- NOTE | 2023-04-27 04:50 | NUR ---
PT ARRIVED TO THE MEDICAL FLOOR AROUND 0415HRS TO ROOM 315. PT A&O X 4; B/P & HR A BIT HIGH; O2 RA. PT VERY SOB WITH AMBULATION. BEDSIDE COMMODE USED. PT DENIED GENERAL PAIN, CHEST PAIN, PALPITATIONS, N,V,D OR DIZZINESS. ADMISSIONS ASSESSMENT AND MED REC COMPLETE. PT AND ORIENTED TO ROOM AND HOSPITAL POLICY. ALL QUESTIONS AND CONCERNS ADDRESSED. CALL LIGHT WITHIN REACH.
[2023-04-27] MEDS ORDERED: XOPENEX 0.0.63 MG/3 IH (08:40)
[2023-04-27] MEDS ORDERED: XOPENEX HF0.045 MG/A IH (08:45)
--- NOTE | 2023-04-27 11:10 | NUR ---
Initial visit: Glass Melt Operator stopped by the room on rounds. Pt was resting and content with and daughter by her side. Pt has no needs right now. Glass Melt Operator will follow as needed.
--- NOTE | 2023-04-27 15:04 | NUR ---
cinder worker met with patient to discuss discharge planning. Patient confirms she lives in [place] with her , Leonid (P#: [phone]). Patient expressed her primary care physician changes frequently because her doctor is through [facility]. She believes her primary is currently Dr. Del Rosario but was not certain on this. Patient confirmed her DP- appoints her Leonid as the agent. Patient has an oxygen concentrator at home. She reports prior to hospital stay she was independent with all ADLS. Patient reports her preferred pharmacy is [facility] in [place] and she has not struggled to afford any medications at this time. She would like to return home at time of discharge. Discharge Plan: Home
[2023-04-28] VITALS (11 sets, daily range): BP systolic 104–149; BP diastolic 57–79; PULSE 89–113; TEMP 98.2–99.2
--- NOTE | 2023-04-28 05:29 | NUR ---
A/O VSS, remains on 4L 02, LR continues at 100 ml/hr, ambulating with standby assistanace, bed in low locked position, call light within reach
--- NOTE | 2023-04-28 05:31 | NUR ---
A/O VSS, denies complaints, awaiting possible tx today, bed in low locked position, call light within reach, will continue to monitor
--- NOTE | 2023-04-28 07:42 | NUR ---
PATIENT ON 4 MOTION STUDY ENGINEER, SPO2 95%.
[2023-04-28 08:44] LABS: GRAN % 87.8 % (42.2-75.2); HEMATOCRIT 41.7 % (37.0-47.0); HEMOGLOBIN 14.4 g/dl (12.5-16.0); LYMPH # 0.4 K/mm3 (1.2-3.4); LYMPH % 7.4 % (20.0-51.0); MEAN CELL VOLUME 92 fl (80.0-100.0); MEAN CORPUSCULAR HEMOGLOBIN 32 pg (27-31); MEAN CORPUSCULAR HGB CONC 35 g/dl (33.0-37.0); MEAN PLATELET VOLUME 9.5 fl (7.4-10.4); MONO # 0.3 K/mm3 (0.1-0.6); MONO % 4.4 % (1.7-9.3); PLATELET COUNT 157 K/mm3 (130-400); RED BLOOD COUNT 4.55 M/mm3 (4.10-5.30); REDCELL DISTRIBUTION WIDTH-CV 12.9 % (11.5-14.5)
[2023-04-28 08:55] LABS: CALCIUM 9.3 mg/dL (8.4-10.2); CREATININE, serum 0.57 mg/dL (0.57-1.11); POTASSIUM 3.5 mmol/L (3.5-4.5)
--- NOTE | 2023-04-28 11:38 | NUR ---
Housekeeping Associate spoke with Hospitalist who requested a referral to [facility]. SW contacted Sancho at [facility] and faxed a referral.
--- NOTE | 2023-04-28 16:21 | NUR ---
Nuclear Engineer contacted Sancho at [facility] to determine if they received the referral for patient. Sancho expressed they received it and willing to accept on if stable for discharge.
--- NOTE | 2023-04-28 16:25 | NUR ---
Follow up visit: Pt stated she had seen the band aid machine operator. No other needs right now.
--- NOTE | 2023-04-28 21:30 | NUR ---
Patient ambulated from bathroom back to bed. Patient is short of breath from walking to the bathroom and back to bed. Unlabored respirations resume after resting got 10-15 minutes. Denies any pain at this time. Assessment complete at this time. IV in left and right AC both appear clean, dry, intact, and flush with no complications. Denies any other needs at this time.
[2023-04-29] VITALS (10 sets, daily range): BP systolic 129–153; BP diastolic 67–81; PULSE 78–103; TEMP 97.5–98.8
--- NOTE | 2023-04-29 06:00 | NUR ---
Patient resting in bed. Denies any pain at this time. Patient monitored throughout the night by this nurse. Denies any other needs at this time. Call light and personal items in reach. Bed in low position and non-slip footwear in place.
[2023-04-29 07:20] LABS: GRAN # 4.7 K/mm3 (1.4-6.5); GRAN % 89.7 % (42.2-75.2); HEMATOCRIT 38.3 % (37.0-47.0); HEMOGLOBIN 12.8 g/dl (12.5-16.0); LYMPH # 0.3 K/mm3 (1.2-3.4); LYMPH % 6.3 % (20.0-51.0); MEAN CELL VOLUME 94 fl (80.0-100.0); MEAN CORPUSCULAR HEMOGLOBIN 31 pg (27-31); MEAN CORPUSCULAR HGB CONC 33 g/dl (33.0-37.0); MEAN PLATELET VOLUME 10.1 fl (7.4-10.4); MONO # 0.2 K/mm3 (0.1-0.6); MONO % 3.6 % (1.7-9.3); PLATELET COUNT 167 K/mm3 (130-400); RED BLOOD COUNT 4.07 M/mm3 (4.10-5.30); REDCELL DISTRIBUTION WIDTH-CV 12.8 % (11.5-14.5)
[2023-04-29 07:45] LABS: CALCIUM 9.4 mg/dL (8.4-10.2); CREATININE, serum 0.52 mg/dL (0.57-1.11); MAGNESIUM 1.8 mg/dL (1.6-2.6)
[2023-04-29 07:49] LABS: POTASSIUM 2.9 mmol/L (3.5-4.5)
--- NOTE | 2023-04-29 08:00 | NUR ---
Critical K+ 2.[address] Kolb. K+ protocol ordered.
--- NOTE | 2023-04-29 11:00 | NUR ---
Reviewed what Pulmonary Rehab to the patient and reviewed COPD zones and action plan. Patient stated she is interested in attending Pulmonary Rehab. Patient lives in [place]. In the past, Dr. Arcos has referred her to [facility]. Pt states she would like us to forward this referral to [facility]. Staff aware and will fax today. COPD action plan and pulmonary rehab handouts were given to the patient.
--- NOTE | 2023-04-29 15:34 | NUR ---
Regional Trainer collaborated with Sancho about discharge tomorrow. TAD arranged [facility] for transport with a pick and shovel man of 1300. Waiter/Waitress Captain notified.
--- NOTE | 2023-04-29 16:11 | NUR ---
composite worker met with patient to discuss discharge. composite worker explained [facility] has accepted and she would be ready to be transported there tomorrow via ambulance. Patient was in agreement with discharge plan to [facility]. Discharge Plan: [facility]
--- NOTE | 2023-04-29 19:32 | NUR ---
Shift summary: Pt reports feeling good today. Critical K+ 2.9 this AM. K+ protocol added, PO K+ given, repeat labs complete. Pt up to shower with 1 assist. HR increased to low 110's, pt recovers within 10 minutes with rest periods between tasks.
--- NOTE | 2023-04-29 21:00 | NUR ---
Patient resting in chair. Denies any pain at this time. Assessment complete. IV in left AC and right AC are both clean, dry, intact, and flush with no complications. Denies any other needs at this time. Call light and personal items in reach. Bed in low position.
[2023-04-30 01:11] VITALS: BP_SYST 148
[2023-04-30 03:40] VITALS: BP 130/73; PULSE 90; TEMP 97.9
[2023-04-30 05:00] VITALS: BP_SYST 130
[2023-04-30 06:39] LABS: GRAN # 3.5 K/mm3 (1.4-6.5); GRAN % 77.7 % (42.2-75.2); HEMATOCRIT 38.4 % (37.0-47.0); HEMOGLOBIN 12.8 g/dl (12.5-16.0); LYMPH # 0.5 K/mm3 (1.2-3.4); LYMPH % 11.8 % (20.0-51.0); MEAN CELL VOLUME 94 fl (80.0-100.0); MEAN CORPUSCULAR HEMOGLOBIN 31 pg (27-31); MEAN CORPUSCULAR HGB CONC 33 g/dl (33.0-37.0); MEAN PLATELET VOLUME 10.2 fl (7.4-10.4); MONO # 0.4 K/mm3 (0.1-0.6); MONO % 9.8 % (1.7-9.3); PLATELET COUNT 147 K/mm3 (130-400); REDCELL DISTRIBUTION WIDTH-CV 12.9 % (11.5-14.5)
[2023-04-30 07:05] LABS: CREATININE, serum 0.62 mg/dL (0.57-1.11); POTASSIUM 3.6 mmol/L (3.5-4.5)
[2023-04-30 07:24] VITALS: BP 148/89; PULSE 78; TEMP 97.8
[2023-04-30] MEDS ORDERED: MONODOX100 PO (08:28)
[2023-04-30] MEDS ORDERED: IPRATROPIUM BROM3 M1 IH (08:29)
[2023-04-30] MEDS ORDERED: PERFOROMIS20 MCG/2 M IH (08:30)
[2023-04-30] MEDS ORDERED: PULMICORT0.5 MG/2 M IH (08:31)
[2023-04-30] MEDS ORDERED: PREDNISONE20 MG PO (08:31)
[2023-04-30 08:50] VITALS: BP_SYST 148
--- NOTE | 2023-04-30 09:13 | NUR ---
pt resting in bed this morning. pt stated she is leaving today confirmed with this nurse she is scheduled to leave at 1300. pt does have some shortness of breath when changing positions in bed. some expiratory wheezing noted in the upper lobes.
[2023-04-30 11:32] VITALS: BP 152/72; PULSE 98; TEMP 98.1
--- NOTE | 2023-04-30 12:56 | NUR ---
EMS TRANSPORT ARRIVED TO TRANSPORT PATIENT TO [facility]. PT IS A&OX4 NO COMPLAINT OF PAIN OR DISCOMFORT. PT CHANGED INTO HER OWN CLOTHES FOR TRANSPORT. PT REMAINS ON 4L O2 VIA NC WHICH IS HER BASELINE. IV SITES TO L/R A/C ARE CLEAN DRY AND INTACT, NO REDNESS OR IRRITATION NOTED. REPORT GIVEN TO TRANSPORT TEAM, REPORT CALLED TO RN AT [facility], ALL QUESTIONS AND CONCERNS ANSWERED IN REPORT. ALL PERSONAL BELONGINGS TAKEN WITH PT. FL LEFT THE UNIT AT 1301.
--- NOTE | 2023-04-30 14:54 | NUR ---
Rag Collector met with patient and obtained her signature on EMS forms. Patient is ready to discharge to [facility] and had no questions at this time. Patient stated SW would not need to contact family as they are aware of the plan for discharge to [facility] today. TAD contacted [facility] and verified they would arrive at 1300 for transport. TAD placed completed forms on patient's chart. TAD provided report number to RN and faxed discharge orders. Around 1300, TAD was notified that patient was upset and under the impression she was going to the [facility] location. TAD met with patient who was in the hallway, secured on the gurney. Patient expressed frustration and stated she was told she would be going to [facility]. TAD asked who told her this and patient stated "the lady with you", referring to TAD Fernández. Later in the conversation however, patient stated that Sancho, Clinical Liason told her she was going to [facility]. TAD contacted Sancho who advised patient was set up to go to and that [facility] has no beds. Patient is upset with the situation but agreeable to go to . Patient stated it's just futher away for her as they live in [place]. TAD contacted patient's , Leonid with update. Leonid was also under the impression it was [facility] and that Sancho told him this. Discharge Plan: [facility]
== END 2023-04-30 13:01 | disposition swing bed (61) | DRG 189 ==
LOC: COL.ER 22:47 → MEDICAL 04-27 02:34
PROVIDERS: Emergency Medicine; Internal Medicine; Physician Assistant; ADMIT Internal Medicine
DX: J96.01 Acute respiratory failure with hypoxia (principal); J44.1 Chronic obstructive pulmonary disease with (acute) exacerbation; E87.6 Hypokalemia; I10 Essential (primary) hypertension; E78.5 Hyperlipidemia, unspecified; L50.8 Other urticaria; E83.119 Hemochromatosis, unspecified; F41.9 Anxiety disorder, unspecified; K21.9 Gastro-esophageal reflux disease without esophagitis; F10.10 Alcohol abuse, uncomplicated
CPT/HCPCS: A9270; A9284; J1650; J1836; J1956; J2920; J2930; J3370; J3475; J7030; J7050; J7120; J7512; Q9967

== ENCOUNTER 2023-09-23 17:04 | Inpatient (IN) | payer MEDICARE, OTHER ==
[~2023-09-23] VITALS: Ht 152.4 cm; Wt 59.0 kg
[~2023-09-23 17:04] MED LIST changes: +CRESTOR40 MG PO; +ERGOCALCIFER50000 IU PO; +FLONASE NASAL S16 GM NS; +FOSAMAX 70MG TA70 MG PO; +IPRATROPIUM BROM3 M1 IH; +MONODOX100 PO; +OMNICEF 300MG300 MG PO; +PERFOROMIS20 MCG/2 M IH; +PREDNISONE20 MG PO; +PRILOSEC10 MG PO; +PRILOTC PO; +TAZTIA120 PO; +Thiamine 100 MG TAB PO SCH; +VITAMIN B11000 MCG/M IM; +WIXELA 500-501 EACH IH; +XOPENEX 0.0.63 MG/3 IH; +XOPENEX 1.1.25 MG/3 IH; +ZOFRAN 4MG T4 MG/TAB PO
[2023-09-23] MEDS ORDERED: methylPREDNISolone Sod Succ 125 MG/2 ML VIAL IV ONE (17:45)
[2023-09-23] MEDS ORDERED: Albuterol/Ipratropium 3 MG-0.5 MG/3 ML Neb Soln IH SCH (17:45)
[2023-09-23 17:53] LABS: BASO % 0.2 % (0.0-2.0); EOS % 0.3 % (0.0-4.0); GRAN # 5.4 K/mm3 (1.4-6.5); GRAN % 83.5 % (42.2-75.2); HEMATOCRIT 37.4 % (37.0-47.0); HEMOGLOBIN 13.7 g/dl (12.5-16.0); LYMPH # 0.3 K/mm3 (1.2-3.4); LYMPH % 5.2 % (20.0-51.0); MEAN CELL VOLUME 88 fl (80.0-100.0); MEAN CORPUSCULAR HEMOGLOBIN 32 pg (27-31); MEAN CORPUSCULAR HGB CONC 37 g/dl (33.0-37.0); MEAN PLATELET VOLUME 10.5 fl (7.4-10.4); MONO # 0.7 K/mm3 (0.1-0.6); MONO % 10.3 % (1.7-9.3); PLATELET COUNT 164 K/mm3 (130-400); RED BLOOD COUNT 4.25 M/mm3 (4.10-5.30); REDCELL DISTRIBUTION WIDTH-CV 12.4 % (11.5-14.5)
[2023-09-23 18:18] LABS: ALBUMIN 3.1 gm/dL (3.4-4.8); BILIRUBIN,TOTAL 0.6 mg/dL (0.2-1.2); CALCIUM 8.1 mg/dL (8.4-10.2); CREATININE, serum 9.86 mg/dL (0.57-1.11); POTASSIUM 4.1 mmol/L (3.5-4.5)
[2023-09-23 18:32] LABS: TROPONIN-I 0.043 ng/mL (0.00-0.033)
[2023-09-23] MEDS ORDERED: Albuterol 0.083% Neb Soln 2.5 MG/3 ML UD IH PRN (19:45)
[2023-09-23] MEDS ORDERED: INCRUSE EL62.5 MCG/A IH (19:46)
[2023-09-23] MEDS ORDERED: ALBUTEROL SULFAT3 M3 IH (19:47)
[2023-09-23] MEDS ORDERED: PROTONIX 40MG T40 MG PO (19:48)
[2023-09-23] MEDS ORDERED: NORVASC 5MG5 MG/TAB PO (19:48)
[2023-09-23] MEDS ORDERED: FOSAMAX 70MG TA70 MG PO (19:49)
[2023-09-23] MEDS ORDERED: PREDNISONE10 MG PO (19:57)
[2023-09-23] MEDS ORDERED: Ergocalciferol 1.25 MG (50,000 UNITS) CAPSULE PO SCH (20:00)
[2023-09-23] MEDS ORDERED: hydrOXYzine HCl 25 MG TAB PO PRN (20:00)
[2023-09-23] MEDS ORDERED: NS 1,000 ML IV ONE (20:30)
[2023-09-23] MEDS ORDERED: NS 1,000 ML IV SCH (20:30)
[2023-09-23 20:48] LABS: COLLECTION METHOD CATHETER
[2023-09-23] MEDS ORDERED: Albuterol 0.021% Neb Soln 0.63 MG/3 ML UD IH SCH (21:00)
[2023-09-23] MEDS ORDERED: Rosuvastatin 40 MG **** subs to Atorvastatin 80 MG PO SCH (21:00)
[2023-09-23 21:13] LABS: CREATININE, serum 9.86 mg/dL (0.57-1.11); MAGNESIUM 2.7 mg/dL (1.6-2.6); PHOSPHOROUS 10.2 mg/dL (2.3-4.7)
[2023-09-23 21:50] LABS: FRACTIONAL EXCRETION OF NA+ 17.01 %
[2023-09-23 21:56] LABS: PH 5.5 (5.0-8.5); SQUAMOUS EPITHELIAL 0-2 /hpf (0-10); URINE APPEARANCE Clear (CLEAR/HAZY); URINE BLOOD 2+ (NEGATIVE); URINE COLOR Straw (YELLOW); URINE GLUCOSE TRACE (NEGATIVE); URINE KETONE Negative (NEGATIVE); URINE NITRATE Negative (NEGATIVE); URINE PROTEIN(semi-quant) 1+ (NEGATIVE); URINE UROBILINOGEN 0.2 E.U/dL (0.2-1.0)
[2023-09-23 21:57] LABS: AMORPHOUS CRYSTAL Present (NOT PRESENT); URINE BACTERIA Occasional /hpf (NONE SEEN)
[2023-09-23] MEDS ORDERED: LORazepam 1 MG TAB PO PRN (22:00)
[2023-09-23] MEDS ORDERED: Mag/Al Hydrox/Simeth Susp 30 ML CUP PO PRN (22:00)
[2023-09-23] MEDS ORDERED: Folic Acid 1 MG,Thiamine 200 MG in NS 1,000 ML IV ONE (22:00)
[2023-09-23] MEDS ORDERED: LORazepam 2 MG/ML 1 ML VIAL IV PRN (22:00)
[2023-09-23] MEDS ORDERED: Acetaminophen 325 MG TAB PO PRN (22:30)
[2023-09-23 22:39] LABS: PROTHROMBIN TIME 11.2 SECONDS (9.7-12.8)
[2023-09-23 22:42] LABS: PARTIAL THROMBOPLASTIN TIME 32.5 SECONDS (26.0-37.0)
[2023-09-23 22:43] LABS: TRICYCLIC ANTIDEPRESS URINE NEGATIVE (NEGATIVE)
[2023-09-23 23:42] VITALS: BP 154/79
[2023-09-24] VITALS (12 sets, daily range): BP systolic 135–159; BP diastolic 69–84; PULSE 80–108; TEMP 97.7–98.6
[2023-09-24] MEDS ORDERED: Heparin 5,000 UNITS/ML 1 ML VIAL SQ SCH
--- NOTE | 2023-09-24 00:27 | NUR ---
pt arrived to the unit around 2300. She was able to walk to the bed from [facility], gait slightly weak and mild tremors noted. Pt states the trmeors are baseline from all the steroids she takes. Alert and oriented x4. Says her brought her in and will be back tomorrow. Shift assessment complete, VSS. Medicated per emar. Pain rated 6/10, Tylenol given.IV to left forearm. CDI. Dutton catheter to dependent drainage, CDI. Tele monitoring. Denies further need at this time. Call light within reach. Bed alarm set.
[2023-09-24 01:49] LABS: CALCIUM 7.7 mg/dL (8.4-10.2); CREATININE, serum 9.28 mg/dL (0.57-1.11); POTASSIUM 3.9 mmol/L (3.5-4.5)
[2023-09-24 06:46] LABS: MEAN CELL VOLUME 86 fl (80.0-100.0); MEAN CORPUSCULAR HEMOGLOBIN 32 pg (27-31); MEAN CORPUSCULAR HGB CONC 37 g/dl (33.0-37.0); MEAN PLATELET VOLUME 10.3 fl (7.4-10.4); PLATELET COUNT 132 K/mm3 (130-400); RED BLOOD COUNT 3.75 M/mm3 (4.10-5.30); REDCELL DISTRIBUTION WIDTH-CV 12.1 % (11.5-14.5)
[2023-09-24 06:49] LABS: HEMATOCRIT 32.4 % (37.0-47.0)
[2023-09-24 06:56] LABS: CALCIUM 7.5 mg/dL (8.4-10.2); CREATININE, serum 8.88 mg/dL (0.57-1.11); POTASSIUM 3.7 mmol/L (3.5-4.5)
[2023-09-24] MEDS ORDERED: Budesonide Neb Susp 0.5 MG/2 ML AMP IH SCH (07:00)
[2023-09-24 07:04] LABS: LYMPHOCYTE 2 % (20.0-51.0); NEUTROPHILS 95 % (42.0-75.2); PLATELET ESTIMATE DECREASED (NORMAL)
[2023-09-24] MEDS ORDERED: Multivitamin TAB PO SCH (08:00)
--- NOTE | 2023-09-24 08:36 | NUR ---
LAB CALLED CRITICAL [facility] [address]. DR ALEMAN NOTIFIED.
[2023-09-24] MEDS ORDERED: Umeclidinium 62.5 MCG **** subs to Tiotropium 5 mcg IH SCH (09:00)
[2023-09-24] MEDS ORDERED: Roflumilast 500 MCG TAB PO SCH (09:00)
[2023-09-24] MEDS ORDERED: Folic Acid 1 MG TAB PO SCH (09:00)
[2023-09-24] MEDS ORDERED: amLODIPine 5 MG TAB PO SCH (09:00)
[2023-09-24] MEDS ORDERED: Cyanocobalamin (Vit B-12) 1,000 MCG TAB PO SCH (09:00)
[2023-09-24] MEDS ORDERED: Sodium Bicarbonate 650 MG TAB PO SCH (09:00)
[2023-09-24] MEDS ORDERED: Escitalopram 10 MG TAB PO SCH (09:00)
[2023-09-24] MEDS ORDERED: Cetirizine 10 MG TAB PO SCH (09:00)
[2023-09-24] MEDS ORDERED: dilTIAZem CD (24-HR) 120 MG CAP PO SCH (09:00)
[2023-09-24] MEDS ORDERED: Fluticasone Nasal 50 MCG/Spray 16 GM BOTTLE NS SCH (09:00)
[2023-09-24] MEDS ORDERED: predniSONE 10 MG TAB PO SCH (09:00)
[2023-09-24] MEDS ORDERED: Tiotropium 2.5 MCG Respimat MDI IH SCH (09:00)
[2023-09-24] MEDS ORDERED: Nystatin Oral Susp 100,000 UNITS/ML 5 ML UD PO SCH (09:00)
--- NOTE | 2023-09-24 09:15 | NUR ---
PT LAYING IN BED UPON ENTERING. ASSESSMENT DONE, MEDS GIVEN PER ORDER. LEFT FOREARM IV PATENT, FLUIDS RUNNING PER ORDER. PT ON 4L NASAL CANNULA AND DENIES SHORTNESS OF BREATH AT THIS TIME. PT DENIES PAIN. NEFF PATENT WITHOUT COMPLICATIONS. UPPER LOBES DIMINISHED AND CRACKLES HEARD IN BASES BILATERALLY. 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 PT DID VOMIT ONCE THIS MORNING, SMALL CLEAR FROTHY EMESIS. PT DENIES NAUSEA AND STATES THAT IT FELT LIKE HER BREAKFAST GOT "STUCK". PT SWALLOWED PILLS WITHOUT ISSUE. PT DENIES NEEDS AT THIS TIME. BED IN LOWEST POSITION, CALL LIGHT IN REACH, BED ALARM ON
[2023-09-24] MEDS ORDERED: TYLENOL 500MG500 MG PO (09:53)
--- NOTE | 2023-09-24 15:15 | NUR ---
IV TO LEFT FOREARM INFILTRATED WHILE NORMAL SALINE WAS RUNNING. EDEMA AND REDNESS NOTED AROUND THE SITE, WARM TO TOUCH AND PT DENIES PAIN AT SITE. 22G STARTED IN LEFT FOREARM ON 2ND ATTEMPT. FLUIDS RESTARTED PER ORDER. PT DENIES NEEDS AT THIS TIME. BED IN LOWEST POSITION, CALL LIGHT IN REACH, BED ALARM ON
--- NOTE | 2023-09-24 16:44 | NUR ---
TAD Student identified self as TAD Student and completed intake with patient and spouse Leonid at bedside. Patient lives in [place], [place] with her spouse Leonid (ph#[phone]). Patient confirmed that a second point of contact would be her daughter Shan(ph#[phone]). Patient stated that she goes to [facility] for primary care and prefers to obtain medications from [facility] in . Patient stated that she is independent with ADLs and does not utilize any mobility devices. Spouse stated that patient does use an [employer] stairlift. Patient stated that she uses 4L of oxygen. Patient stated that she has not had any issues with affording medications and does have reliable transportation when needed. Patient confirmed that her DPOA is her , with her daughters Shan and Cristina being alternates. Patient is covered by Medicare and [employer] for insurance. Patient stated that she plans to return home at time of discharge. Discharge Plan: Home
[2023-09-24 20:52] LABS: COLLECTION METHOD CATHETER
[2023-09-24 21:04] LABS: URINE APPEARANCE CLOUDY (CLEAR/HAZY); URINE BLOOD 3+ (NEGATIVE); URINE COLOR YELLOW (YELLOW); URINE GLUCOSE 1+ (NEGATIVE); URINE KETONE NEGATIVE (NEGATIVE); URINE NITRATE NEGATIVE (NEGATIVE); URINE PROTEIN(semi-quant) 1+ (NEGATIVE); URINE UROBILINOGEN 0.2 E.U/dL (0.2-1.0)
[2023-09-24 21:21] LABS: SQUAMOUS EPITHELIAL 0-2 /hpf (0-10); URINE BACTERIA MODERATE /hpf (NONE SEEN); URINE RBC >50 /hpf (0-2)
[2023-09-25] VITALS (15 sets, daily range): BP systolic 129–153; BP diastolic 52–75; PULSE 73–80; TEMP 97.6–98.5
--- NOTE | 2023-09-25 04:50 | NUR ---
PT HAS SLEPT MINIMALLY THIS SHIFT. REPORTS NO QUESTIONS OR COMPLAINTS. NOTED SOME WORK OF BREATHING WITH EXERTION, BUT TOLERATES AMBULATION WELL WHEN UP TO USE TOILET. NS INFUSING WITHOUT ISSUE TO L F/A, GOOD URINE OUTPUT.
--- NOTE | 2023-09-25 08:40 | NUR ---
PT SITTING IN BED EATING BREAKFAST UPON ENTERING. ASSESSMENT DONE, MEDS GIVEN PER ORDER. PT DENIES PAIN BUT DOES REPORT SOME SHORTNESS OF BREATH AT THIS TIME, PT ON 4L NASAL CANNULA. LEFT FOREARM IV LEAKING, DRESSING CHANGED AND SITE REPOSITIONED. SITE FLUSHED AND NO LONGER LEAKING AT THIS TIME. FLUIDS RUNNING PER ORDER. NEFF PATENT AND DRAINING DEPENDENTLY WITHOUT ISSUES. BILATERAL LOWER EXTREMITY EDEMA +1. PT DENIES NEEDS AT THIS TIME. BED IN LOWEST POSITION, CALL LIGHT IN REACH, BED ALARM ON
--- NOTE | 2023-09-25 11:17 | NUR ---
SW Student faxed HH referral to [facility] (fax#[phone]).
--- NOTE | 2023-09-25 14:18 | NUR ---
PT LAYING IN BED, SPOUSE AT BEDSIDE. PT REPORTS STILL BEING SLIGHTLY SHORT OF BREATH, O2 SATS >92%. PT DENIES NEED FOR BREATHING TREATMENT AT THIS TIME.
[2023-09-25 15:47] LABS: CALCIUM 8.1 mg/dL (8.4-10.2); CREATININE, serum 7.37 mg/dL (0.57-1.11)
[2023-09-25] MEDS ORDERED: *Potassium Replacement Protocol MC SCH (16:30)
--- NOTE | 2023-09-25 16:47 | NUR ---
DR INGRAM SEEING PT VIA TELEHEALTH APPROX 1230. THIS NURSE AT BEDSIDE DURING THAT TIME AND WAS GIVEN A VERBAL ORDER TO DISCONTINUE IV NORMAL SALINE BY DR INGRAM. FLUIDS DISCONTINUED BUT ORDER WASNT DISCONTINUED. ATTEMPTED TO CALL DR INGRAM 2 TIMES WITHOUT AN ANSWER. DR ALEMAN CALLED AND NOTIFIED, THIS NURSE GIVEN A VEBRAL ORDER TO DISCONTINUE ORDER FOR NORMAL SALINE.
[2023-09-25] MEDS ORDERED: Sodium Bicarbonate/Water,Steri 1,150 ML IV SCH (17:00)
--- NOTE | 2023-09-25 17:11 | NUR ---
Engineering Recruiter met with patient to review discharge plan and discuss PT recommendation for SNF vs Home Health. Patient would prefer to return home with and advised she would like to use [facility] as she has used [facility] before. SW Student faxed referral to [facility]. SW received a call from [facility] and they can accept. Discharge Plan: Home with [facility]
--- NOTE | 2023-09-25 18:58 | NUR ---
report given to christine alberto and christine sanz
[2023-09-25] MEDS ORDERED: Potassium Bicarbonate/Citrate 20 MEQ Effervescent TAB PO ONE (19:45)
--- NOTE | 2023-09-25 23:46 | NUR ---
PT ALERT AND ORIENTED. UPON ENTERING PT RESTING IN BED, CHEST RISE AND FALL NOTED. PT IS CURRENTLY ON 4 LITERS NC. ASSESSMENT DONE, VSS. DENIES PAIN AT THIS TIME. PERIPHERAL IV TO LEFT FOREARM PATENT. POTASSIUM REPLACED PER PROTOCOL. MEDICATED PER EMAR, SEE DOCUMENTATION. STATES SHE FEELS BETTER OVERALL FROM WHEN SHE WAS FIRST ADMITTED. CALL LIGHT WITHIN REACH.
[2023-09-26] VITALS (17 sets, daily range): BP systolic 132–162; BP diastolic 69–80; PULSE 77–85; TEMP 97–98.8
[2023-09-26] MEDS ORDERED: Potassium Bicarbonate/Citrate 20 MEQ Effervescent TAB PO SCH (00:45)
[2023-09-26] MEDS ORDERED: Potassium Bicarbonate/Citrate 20 MEQ Effervescent TAB PO ONE ×4 (01:00→20:15)
[2023-09-26 04:49] LABS: EOS % 0.6 % (0.0-4.0); GRAN # 4.5 K/mm3 (1.4-6.5); GRAN % 83.3 % (42.2-75.2); HEMATOCRIT 27.8 % (37.0-47.0); HEMOGLOBIN 10.6 g/dl (12.5-16.0); LYMPH # 0.3 K/mm3 (1.2-3.4); LYMPH % 6.2 % (20.0-51.0); MEAN CELL VOLUME 86 fl (80.0-100.0); MEAN CORPUSCULAR HEMOGLOBIN 33 pg (27-31); MEAN CORPUSCULAR HGB CONC 38 g/dl (33.0-37.0); MEAN PLATELET VOLUME 10.2 fl (7.4-10.4); MONO # 0.5 K/mm3 (0.1-0.6); MONO % 9.5 % (1.7-9.3); PLATELET COUNT 164 K/mm3 (130-400); RED BLOOD COUNT 3.25 M/mm3 (4.10-5.30); REDCELL DISTRIBUTION WIDTH-CV 12.4 % (11.5-14.5)
[2023-09-26 04:52] LABS: ALBUMIN 2.4 gm/dL (3.4-4.8); CREATININE, serum 6.82 mg/dL (0.57-1.11); MAGNESIUM 1.9 mg/dL (1.6-2.6); PHOSPHOROUS 6.2 mg/dL (2.3-4.7)
[2023-09-26 05:05] LABS: POTASSIUM 2.8 mmol/L (3.5-4.5)
--- NOTE | 2023-09-26 15:49 | NUR ---
DISCONTINUED CIWA PROTOCOL PER DOCTORS ORDERS.
--- NOTE | 2023-09-26 18:39 | NUR ---
RECIEVED REPORT FROM JOVITA VELOZ.
[2023-09-27] VITALS (13 sets, daily range): BP systolic 137–153; BP diastolic 74–87; PULSE 81–89; TEMP 97.4–98.5
--- NOTE | 2023-09-27 00:10 | NUR ---
PT ALERT AND ORIENTED, VSS. UPON ENTERING PT LAYING IN BED NEFF D/C WITH SUCCESSFUL VOID. UNFORTUNATELY SHE MISSED THE HAT SO WE WERENT ABLE TO MEASURE. SHE DID WELL WITH AMBULATION, STILL HAS MILD TREMORS BUT TOLERATED WELL.MEDICATED PER EMAR. LFA INT PATENT. ASSESSED, SKIN INTACT, DENIES PAIN. CALL LIGHT WITHIN REACH. DENIES FURTHER NEED AT THIS TIME.
[2023-09-27] MEDS ORDERED: Potassium Bicarbonate/Citrate 20 MEQ Effervescent TAB PO ONE ×5 (03:00→22:00)
[2023-09-27 03:53] LABS: EOS # 0.1 K/mm3 (0.0-0.7); EOS % 0.9 % (0.0-4.0); GRAN # 5.5 K/mm3 (1.4-6.5); HEMOGLOBIN 10.8 g/dl (12.5-16.0); LYMPH # 0.4 K/mm3 (1.2-3.4); LYMPH % 5.8 % (20.0-51.0); MEAN CELL VOLUME 88 fl (80.0-100.0); MEAN CORPUSCULAR HEMOGLOBIN 32 pg (27-31); MEAN CORPUSCULAR HGB CONC 37 g/dl (33.0-37.0); MEAN PLATELET VOLUME 10.3 fl (7.4-10.4); MONO # 0.5 K/mm3 (0.1-0.6); PLATELET COUNT 190 K/mm3 (130-400); RED BLOOD COUNT 3.37 M/mm3 (4.10-5.30); REDCELL DISTRIBUTION WIDTH-CV 12.5 % (11.5-14.5)
[2023-09-27 04:04] LABS: HEMATOCRIT 29.5 % (37.0-47.0)
[2023-09-27 04:29] LABS: ALBUMIN 2.6 gm/dL (3.4-4.8); CALCIUM 8.4 mg/dL (8.4-10.2); CREATININE, serum 5.82 mg/dL (0.57-1.11); MAGNESIUM 1.7 mg/dL (1.6-2.6); PHOSPHOROUS 4.8 mg/dL (2.3-4.7); POTASSIUM 3.2 mmol/L (3.5-4.5)
[2023-09-27] MEDS ORDERED: Magnesium Oxide 400 MG TAB PO SCH (08:53)
--- NOTE | 2023-09-27 08:57 | NUR ---
knockdown worker was informed by Dr. Lopez during rounding that pt can potentially discharge tomorrow with [facility]. SW faxed updates to . Discharge Plan: Home with [facility]
--- NOTE | 2023-09-27 21:33 | NUR ---
UPON SHIFT ASSESSMENT, WILIAN WAS AWAKE IN BED WATCHING TV. SHE IS AXO AND VS ARE WNL, TELE IS NS. BASELINE TREMORS NOTED. LUNG SOUNDS CLEAR AND PATIENT DENIES PAIN OR NEEDS AT THIS TIME. CALL LIGHT WITHIN REACH.
[2023-09-28 01:00] VITALS: BP_SYST 148
[2023-09-28] MEDS ORDERED: Potassium Bicarbonate/Citrate 20 MEQ Effervescent TAB PO ONE ×2 (01:30→07:30)
[2023-09-28 03:09] VITALS: BP 133/80; PULSE 82; TEMP 97.4
[2023-09-28 05:00] VITALS: BP_SYST 133
[2023-09-28 07:08] LABS: ALBUMIN 2.7 gm/dL (3.4-4.8); CALCIUM 8.9 mg/dL (8.4-10.2); CREATININE, serum 4.33 mg/dL (0.57-1.11); MAGNESIUM 1.6 mg/dL (1.6-2.6); PHOSPHOROUS 3.4 mg/dL (2.3-4.7); POTASSIUM 3.5 mmol/L (3.5-4.5)
[2023-09-28 07:15] VITALS: BP 146/75; PULSE 86; TEMP 98.2
--- NOTE | 2023-09-28 08:16 | NUR ---
Assessment complete. A/O x4. O2 4L/NC. Reports SOA on exertion. Denies pain. Reports feeling overall improved. Denies needs at this time.
[2023-09-28] MEDS ORDERED: MAG-OX 400400 MG/TAB PO (08:34)
[2023-09-28] MEDS ORDERED: K-DUR20 MEQ PO (08:36)
[2023-09-28 09:06] VITALS: BP_SYST 146
[2023-09-28 10:58] VITALS: BP 146/77; PULSE 84; TEMP 98.4
--- NOTE | 2023-09-28 11:21 | NUR ---
Discharge instructions reviewed with patient- patient verbalizes understanding. Student nurse to remove INT. Pt has home oxygen tank at bedside.
--- NOTE | 2023-09-28 12:25 | NUR ---
Patient escorted to private vehicle via wheelchair and discharged home.
--- NOTE | 2023-09-28 14:55 | NUR ---
marriage and family social worker was notified by Dr. Lopez that patient is ready for discharge today. Patient is returning home with [facility]. SW met with patient to review the important message from Medicare. Patient understood, signed the form. SW made a copy and placed the original in the chart. SW provided the IM to the patient. TAD faxed discharge orders and updates to [facility]. Discharge plan: Home with [facility]
== END 2023-09-28 12:25 | disposition home health service (06) | DRG 682 ==
LOC: COL.ER 17:04 → MEDICAL 22:05
PROVIDERS: Internal Medicine; Internal Medicine Nephrology; Nurse Practitioner Family; Personal Emergency Response Attendant; ADMIT Internal Medicine
DX: N17.9 Acute kidney failure, unspecified (principal); I21.A1 Myocardial infarction type 2; E87.1 Hypo-osmolality and hyponatremia; J96.11 Chronic respiratory failure with hypoxia; E87.20 Acidosis, unspecified; J44.9 Chronic obstructive pulmonary disease, unspecified; F41.9 Anxiety disorder, unspecified; E03.9 Hypothyroidism, unspecified; E78.5 Hyperlipidemia, unspecified; K21.9 Gastro-esophageal reflux disease without esophagitis; L50.8 Other urticaria; F10.90 Alcohol use, unspecified, uncomplicated; I10 Essential (primary) hypertension; E83.119 Hemochromatosis, unspecified; Z96.642 Presence of left artificial hip joint; E83.42 Hypomagnesemia; I34.0 Nonrheumatic mitral (valve) insufficiency; Z20.822 Contact with and (suspected) exposure to COVID-19; E87.8 Other disorders of electrolyte and fluid balance, not elsewhere classified; R79.89 Other specified abnormal findings of blood chemistry; E87.6 Hypokalemia; Z90.710 Acquired absence of both cervix and uterus; Z88.6 Allergy status to analgesic agent; Z88.1 Allergy status to other antibiotic agents; Z88.3 Allergy status to other anti-infective agents; Z88.2 Allergy status to sulfonamides; Z88.8 Allergy status to other drugs, medicaments and biological substances; Z99.81 Dependence on supplemental oxygen; Z85.3 Personal history of malignant neoplasm of breast; Z92.3 Personal history of irradiation; Z79.899 Other long term (current) drug therapy; Z87.891 Personal history of nicotine dependence; Z87.19 Personal history of other diseases of the digestive system; Z23 Encounter for immunization
CPT/HCPCS: A9270; J1644; J2930; J3411; J7030; J7512; Q3014